=== PATIENT | female | born 1945 | race Caucasian/White ===

== ENCOUNTER 2016-09-12 15:28 | Emergency (ER) | payer OTHER ==
[~2016-09-12] VITALS: Ht 157.5 cm; Wt 74.8 kg
[2016-09-12 15:28] VITALS: BP 153/83
[~2016-09-12 15:28] MED LIST: ASPIR 8181 MG; CELEXA10 MG PO; FLAX OIL1000 MG PO; METFORMIN HCL500 MG PO; MULTIVITAMINS PO; NORCO 5-325 TA1 EACH PO; ZOCOR 20 MG TAB20 M1 PO
[2016-09-12] MEDS ORDERED: NORCO 5-325 TA1 EACH PO (16:31)
== END 2016-09-12 16:50 | disposition home or self-care (01) ==
LOC: ER 15:28
DX: S20.212A Contusion of left front wall of thorax, initial encounter (principal); E11.9 Type 2 diabetes mellitus without complications; Z90.89 Acquired absence of other organs; Z88.5 Allergy status to narcotic agent; W18.30XA Fall on same level, unspecified, initial encounter; Y93.89 Activity, other specified; Y92.000 Kitchen of unspecified non-institutional (private) residence as the place of occurrence of the external cause; Y99.9 Unspecified external cause status

== ENCOUNTER 2017-05-15 16:45 | Inpatient (IN) | payer OTHER ==
[~2017-05-15] VITALS: Ht 157.5 cm; Wt 75.7 kg
--- NOTE | ~2017-05-15 | HC ---
[facility] [place] [address] CONSULTATION Name: JUDIT SCHILLING Room #: 418-P ADM IN M.R.#: [id number] Admission: 05/15/17 Attend Phys: Ofe Villanueva Discharge: Date of : 43 Report #: [id number] THIS REPORT FOR: //name// CC: Ofe Milner MD DATE OF SERVICE: 05/16/2017 REASON FOR CONSULTATION: Elevated creatinine, proteinuria, and hypercalcemia. HISTORY OF PRESENT ILLNESS: This is a 72-year-old female who for the most part has been generally healthy. She says she has been feeling somewhat weak and not her normal self over the past couple of months. She became more acutely ill starting 4 days ago with extreme nausea, inability to take much in as far as food and fluids, although she has gotten some liquids in, one episode of emesis. With that feeling poorly, she saw her primary physician, Quita Ravi MD and some labs were drawn. When the labs came back dramatically abnormal, she was told to come to the Emergency Room and be admitted to the hospital. Primary findings from that standpoint include an elevated calcium level which on admission here was 13.1, her phosphorus was 5.2, her total protein was 8.5 and her albumin was 4.1 at that time. Albumin today is 3.4. Her BUN is 40, creatinine 3.2. Otherwise, had normal electrolytes. Urinalysis showed specific gravity greater than 1.030, 2+ protein, 2+ blood, although microscopic exam showed only 3-10 red cells. The patient has no history of prior renal-related problems. She carries diagnosis of some type 2 diabetes mellitus diagnosed about 4 years ago. She is treated chronically with metformin and she is very certain that Dr. Ravi has never made mention of abnormal kidney function, proteinuria, or the related renal issues over that time. No history of nephrolithiasis. She has had rare urinary tract infections. She has occasional lower extremity edema. From a calcium standpoint, she takes vitamin D3. Previously, she was on 5000 units daily, but over the past 6-12 months she has only been on 2000 units daily. She takes 1 calcium supplement a day and she is uncertain of the mg amount, probably either 500 or 600 mg. She has not been taking Tums or any other calcium source, not drinking extra dairy or milk products. This is even with her nausea and vomiting. The only other renal pertinent history is that she takes some ibuprofen, usually about 400 mg for some arthralgias. She typically takes it once a day in the morning if her joints are sore. She has not been taking any higher doses than that and no other nonsteroidals. PAST MEDICAL HISTORY: Type 2 diabetes that started about 4 years ago and well controlled on the metformin, mild hypertension on some lisinopril, but she had not taken it over the past 4-5 days since she got sick, her dose was 10 mg daily and she states her blood pressure was well controlled in the 130s/60s range. [facility] [address] [place] [address] CONSULTATION Name: JUDIT SCHILLING Room #: 418-P [facility] IN M.R.#: [id number] Admission: 05/15/17 Attend Phys: Ofe Villanueva Discharge: Date of : 43 Report #: [id number] MEDICATIONS: She takes vitamin D as well as the calcium supplementation. She also takes some vitamin E, a B complex vitamin. Aspirin 81 mg daily, Fosamax 70 mg weekly, citalopram 10 mg daily, simvastatin 20 mg daily, omeprazole 20 mg daily. ALLERGIES: CODEINE, which caused GI abscess. FAMILY HISTORY: Mother at age 88. Father at age 88. Both were of old age, no chronic medical problems with either of them. She had a brother who had multiple sclerosis and other brother who had bladder cancer and has cystectomy. No other known renal disease in the family. SOCIAL HISTORY: The patient is , lives in [place], [place]. She is retired. Nonsmoker. REVIEW OF SYSTEMS: GENERAL: Tries to remain active. She is not very limited by her arthralgias and does well with the ibuprofen as far as control of that. Had the nausea and vomiting this week but that is an unusual thing for her, typically no nausea or vomiting, no diarrhea or change in bowel habits. She denies dyspnea, cough, chest pain or palpitations. Usually no difficulty voiding urine. She has nocturia once nightly. Typically she has not had any gross hematuria. She says over the past days, she has noticed some swelling in her lower extremities including her shins and her ankles, no upper extremity or facial edema. She is unaware of fevers, chills or sweats. No recent visual or hearing change. No rashes have been noted. She has chronic arthralgias. PHYSICAL EXAMINATION: GENERAL: Very pleasant 72-year-old female, awake, alert and oriented, in no distress at this time. VITAL SIGNS: Blood pressure 136/63, heart rate 84, temperature 98.2 degrees Fahrenheit. No fever since admission, oxygen saturation 97%. HEENT: Shows pupils are equal and reactive. Sclerae are nonicteric. Oral mucosa is moist. Tongue has some mild brownish discoloration. NECK: Shows no adenopathy, thyromegaly, JVD or bruit. CHEST: Clear bilaterally in all lung guzmán. BACK: Shows no paraspinous or CVA tenderness. HEART: Has a regular rate and rhythm. ABDOMEN: Mildly obese, has bowel sounds present, currently is soft with mild diffuse tenderness, no point tenderness, guarding or rebound, no organomegaly, masses are palpable. EXTREMITIES: She has 1+ bilateral pretibial and ankle edema. She has 2+ peripheral pulses. No upper extremity edema. DIAGNOSTIC DATA: I reviewed her renal ultrasound, which shows normal sized [address] [place] [address] CONSULTATION Name: JUDIT SCHILLING Room #: 418-P [facility] IN M.R.#: [id number] Admission: 05/15/17 Attend Phys: Ofe Villanueva Discharge: Date of : 43 Report #: [id number] kidneys bilaterally. There is no hydronephrosis. Cortical echogenicity is good, although it does appear that she has some dense medullary changes, but no patricia stones or calcium deposits. Right kidney is 12.5 cm, left kidney 11 cm bilateral. Her chest x-ray was clear and I have reviewed that. LABORATORY DATA: Labs from admission, sodium 139, potassium 3.8, chloride 100, bicarbonate 25, BUN 40, creatinine 3.2, glucose 124, calcium 13.1, down to 11.5 today. Phosphorus 5.0-5.3, alkaline phosphatase is 78, AST 32, ALT 37, total protein 8.5, albumin 4.1 on admission down to 3.4 today. PTH has been drawn and is pending. Hemoglobin 12.0, hematocrit 34.6, white count 5.9, platelets 180,000, 67 neutrophils, 20 lymphs, 11 monos, 1 eosinophil. Urinalysis is as described above. ASSESSMENT: 1. Acute kidney injury with hypercalcemia. Her hypercalcemia was impressive to its extent. I think the hypercalcemia can likely explain the significant elevated creatinine level. She has been on IV fluids with normal saline, calcium level starting to come down. We will ginette it with some furosemide to increase the calciuria. She also got a dose of pamidronate, which will help. I expect the calcium level continued to improve. Most likely etiologies are either parathyroid related or more likely paraprotein related. She has multiple other potential contributing factors including use of some nonsteroidals, but that dose is only 400 mg of ibuprofen daily, she has also gotten some lisinopril, but has not taken it for days, so it is probably not an active substance at this time. She has no hydronephrosis. Renal medulla are mildly dense but the cortices look well preserved. She has not been frankly hypotensive, so this certainly all points to being a calcium and/or paraprotein related disorder. 2. Proteinuria also a new finding. Another provider had ordered a 24-hour urine for protein. We will change that just to spot urine protein creatinine ratio which will provide more reliability. High concern of a paraprotein disorder. She already had light chain ratios ordered and serum protein electrophoresis. Again highly concerning for potential multiple myeloma. 3. Type 2 diabetes mellitus for 4 years but previously well controlled on metformin alone. PLAN: 1. Continue IV normal saline. 2. Add IV furosemide one time to increase calcium excretion in the urine. 3. Monitor intake and output. 4. Repeat labs in the morning. 5. Awaiting return of her kappa lambda light chain ratio, serum protein electrophoresis, and parathyroid hormone level. 6. I spent an extensive amount of time talking with the patient about her findings and our concerns. We will certainly keep her informed once we have [facility] [address] [place] [address] CONSULTATION Name: JUDIT SCHILLING Room #: 418-P ADM IN M.R.#: [id number] Admission: 05/15/17 Attend Phys: Ofe Villanueva Discharge: Date of : 43 Report #: [id number] additional data back and also discuss what the additional treatment and/or workup will be pending those results. She seems to express understanding. <ELECTRONICALLY SIGNED> By: You Al MD 05/18/17 0756 1340 1937 You Al MD /nt
--- NOTE | ~2017-05-15 | S ---
[facility] [address] [place] [address] SURGICAL PATH RPT PROCEDURE Name: JUDIT SCHILLING Room #: 418-P DIS IN M.R.#: [id number] Admission: 05/15/17 Date of : 43 Discharge: 05/19/17 Report #: [id number] Path Case #: [id number] PATHOLOGY REPORT COLLECTION DATE: 05/19/2017 RECEIVED DATE: 05/19/2017 SUBMITTING PHYS: Dr. Oef Villanueva OTHER PHYS: Dr. Dontae Hernandez SPECIMEN(S) RECEIVED: A.Bone marrow, biopsy B.Bone marrow, clot and/or particle prep C.Bone marrow, aspirate smears D.Peripheral smear * * * * * * * * * * * * FINAL DIAGNOSIS: Bone marrow aspirate, biopsy, cell clot and peripheral blood: - Peripheral blood with moderate to normocytic anemia and mild thrombocytopenia. - Hypercellular bone marrow with trilineage hematopoiesis and extensive involvement by plasma cell dyscrasia (approximately 80% kappa restricted plasma cells by immunohistochemical staining). See comment. COMMENT: Overall the bone marrow is hypercellular for the patient's age with trilineage hematopoiesis and extensive involvement by plasma cell dyscrasia. There are approximately 80% kappa restricted plasma cells by immunohistochemical staining. Correlation with clinical history, additional laboratory data and radiographic findings is required to determine the extent of the disease process. The dyspoiesis is mild and does not meet the morphologic criteria for myelodysplasia. Correlation with cytogenics and FISH analysis is also recommended. (CLW:brandi; 05/21/2017) PATHOLOGIST: Milena Stuart M.D. REPORT ELECTRONICALLY SIGNED BY: Milena Stuart M.D. DATE/TIME: 05/21/2017 19:46 * * * * * * * * * * * * MICROSCOPIC DESCRIPTION: CBC Data (05/19/17): WBC 7,200 /uL, RBC 2.88, hemoglobin 9.7 g/dL, hematocrit 27.7%, MCV 96.4 fL, MCH 33.8 pg, MCHC 35.1 g/dL, RDW 14.1%, and platelet count 131,000 /uL. Manual white blood cell differential: segs 79%, bands 2%, lymphs 14%, monos 5%. Peripheral Blood Smear: [address] [address] SURGICAL PATH RPT PROCEDURE Name: JUDIT SCHILLING Room #: 418-P [facility] IN .R.#: [id number] Admission: 05/15/17 Date of : 43 Discharge: 05/19/17 Report #: [id number] Path Case #: [id number] Cytomorphological examination of the Byrd's stained peripheral blood smear confirms the provided data. Red blood cells show moderate normocytic anemia with no significant anisopoikilocytosis. White blood cells are predominantly segmented neutrophils and are without significant dyspoiesis or significant left shift. Lymphocytes are predominantly small, round, and mature appearing with condensed chromatin and scant cytoplasm with admixed large granular lymphocytes. On scanning, no plasma cells are seen. Platelets are adequate (mildly decreased) in number and mainly normal in morphology with rare larger platelets noted. Aspirate Smears: Cytomorphological examination of the Byrd's stained aspirate smears show hypercellular spicules present. The overall cellularity is approximately 90%. Numerous plasma cells are seen. Apart from the plasma cells, the myeloid to erythroid ratio is 3:1. Myeloid maturation is without significant dyspoiesis and erythroid maturation is mildly dyserythropoietic with irregular nuclear contours and nuclear cytoplasmic asynchrony. In a 500 cell differential, there are 1% blasts (no Markell rods are seen), 29% more differentiated myeloids, 11% erythroid precursors, 5% lymphocytes and 54% plasma cells. Megakaryocytes are proportional in number and both normal and abnormal in morphology with variable sizes in nuclear abnormalities. No lymphoid aggregates or markedly atypical lymphoid cells are seen. Plasma cells are atypical with variable cell sizes and variably condensed nuclear chromatin. Iron stain of the aspirate smear showed 0/4+ iron positivity. There is very little material present on the slide. No ringed sideroblasts are identified. Core Biopsy and Cell Clot: The decalcified bone marrow core biopsy is adequate. The bone marrow is hypercellular with an overall cellularity of approximately 80-90%. Diffuse sheets of atypical plasma cells are identified. Apart from the plasma cells, the myeloid to erythroid ratio is 2-3:1. Myeloid and erythroid maturation are mildly dyspoietic. Megakaryocytes are normal in number and both normal and abnormal in morphology. No lymphoid aggregates or markedly atypical lymphoid cells are seen. Bony trabeculae and blood vessels are unremarkable. The diffuse sheets of plasma cells have atypical morphology with focal spindled cell morphology and variably condensed nuclear chromatin. Iron stain of the cell clot (Block B1 and B5) shows 1/4+ iron positivity with spicules present. To further quantify and characterize the plasma cell population and to identify cells in a tissue architectural context, properly controlled immunohistochemical stains are performed. Block A1 CD138 stains approximately 80% plasma cells including the large sheets [place] and lambda in situ hybridization plasma cells are kappa restricted [address] [address] SURGICAL PATH RPT PROCEDURE Name: JUDIT SCHILLING Room #: 418-P DIS IN M.R.#: [id number] Admission: 05/15/17 Date of : 43 Discharge: 05/19/17 Report #: [id number] Path Case #: [id number] Block B5 CD138 stains approximately 60-70% plasma cells including large sheets [place] and lambda in situ hybridization plasma cells are kappa restricted Flow Cytometry: Flow cytometric immunophenotypic analysis was performed at [facility]. The diagnosis is "small monoclonal plasma cell population detected". There are 8.7% lymphocytes. Of the lymphocytes, there are 72% T-cells with a CD4/CD8 ratio of 9.2 and no aberrant T-cell antigen expression and 4% polyclonal B-cells (kappa lambda ratio of 1.2). There are 0.4% CD34 positive cells (blasts). There are 0.5% plasma cells that show cytoplasmic kappa light chain restriction and show CD19 neg, CD38 fernando, CD45 neg, CD56 neg, CD138 mod and cKappa mod. Flow cytometry shows monoclonal plasma cells (0.5% of total cells). Please see separate flow cytometry report from [facility] ([id number]). Cytogenetics Analysis: Cytogenetic chromosomal analysis is pending at [facility] ([id number]). FISH analysis for an MM-MGUS FISH panel was ordered at [facility]. (CLW:brandi; 05/21/2017) GROSS PATHOLOGY: A. Received in 10% formalin labeled "Judit Schilling, BM biopsy," are 3 needle cores of pleitez bone, ranging from 1.1 to 1.5 cm in length and 0.2 cm in diameter. The specimen is submitted entirely in cassette A1, following decalcification. B. Received in 10% formalin labeled "Judit Schilling BM clot," is blood coagulum, measuring 7.1 x 3.8 x 1.5 cm in aggregate dimensions. The specimen is submitted entirely in cassette B1 through B5. (TSD; 05/19/2017) CLINICAL HISTORY: Myeloma. 72-year-old woman with myeloma. INITIAL CPT CODE(S): A; 30411, 91921, 94586, 93451, 66192 B; 61806, 73682, 22312, 33074, 18259, 34498 C; 29018, 24644 D; 04011 Professional services performed by [employer] at [facility], [address] [place] [id number]. Technical services performed by [employer] at [address] [place] [address]. [address] [place] [address], [address]. [address] [address] SURGICAL PATH RPT PROCEDURE Name: JUDIT SCHILLING Room #: 418-P DIS IN M.R.#: [id number] Admission: 05/15/17 Date of : 43 Discharge: 05/19/17 Report #: [id number] Path Case #: [id number] [facility] [address] [address] PHONE: [phone] DIRECTOR: Zion W. Francis, M.D. * * * END OF REPORT * * *
--- NOTE | ~2017-05-15 | HC ---
[facility] [place] [address] CONSULTATION Name: JUDIT SCHILLING Room #: 418-P [facility] IN M.R.#: [id number] Admission: 05/15/17 Attend Phys: Ofe Villanueva Discharge: 05/19/17 Date of : 43 Report #: [id number] THIS REPORT FOR: //name// CC: Ofe Al MD HISTORY OF PRESENT ILLNESS: This patient is seen in consultation regarding findings of a kappa light chain paraprotein/suspected multiple myeloma. This 72-year-old white female who was seen with her son and was admitted through the Emergency Room with findings of hypercalcemia and complaints of nausea and poor p.o. intake with one episode of emesis. She has been treated subsequently with IV fluids and already in subsequent improvement in her calcium and renal function. Subsequent testing has shown the aforementioned abnormal free light chain. PAST MEDICAL HISTORY: Positive for type 2 diabetes treated with metformin. She has medically managed hypertension with lisinopril. MEDICATIONS: As listed on the MFR. ALLERGIES: CODEINE, WHICH HAD CAUSED A PREVIOUS GI ABSCESS. SOCIAL HISTORY: She is , is a nonsmoker, is retired and lives in [place], [place]. She has a supportive son who was present. FAMILY HISTORY: Negative for any known myeloma. REVIEW OF SYSTEMS: As in the history of present illness. She denies any new bony pains and says she has chronic hip arthritis. She denies any new palpable masses. She denies any sweats, chills or fevers. PHYSICAL EXAMINATION: GENERAL: Shows an alert white female. HEENT: Normocephalic. NECK: Supple. MOUTH: Clear. CHEST: Clear. ABDOMEN: Soft. EXTREMITIES: Showed trace edema. LYMPHATICS: No palpable supraclavicular or axillary lymphadenopathy. NEUROLOGIC: No focal localizing signs. PSYCHIATRIC: Not agitated or confused. LABORATORY DATA: Showed elevated serum creatinine of 3.2 with a calcium of 13.[address] [address] CONSULTATION Name: JUDIT SCHILLING Room #: 418-P [facility] IN M.R.#: [id number] Admission: 05/15/17 Attend Phys: Ofe David Lyn Discharge: 05/19/17 Date of : 43 Report #: [id number] on admission. She has had a bone survey performed showing model changes within her skull compatible with myeloma. 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 PLAN: The patient has undergone a bone marrow aspiration biopsy today, which should confirm the suspected diagnosis of multiple myeloma. She plans to be discharged following this procedure and I will arrange to see her in followup outpatient in the office. I discussed treatment briefly today with she and her son and appreciate the opportunity being asked to see her in consultation and being allowed to participate in her care. <ELECTRONICALLY SIGNED> By: Shalonda Real MD 05/21/17 1537 1604 2312 Shalonda Real MD /nt
--- NOTE | ~2017-05-15 | EKG ---
[place] [address] [address] [facility] [address] [address] ELECTROCARDIOGRAM REPORT Name: JUDIT SCHILLING Room #: 418-P ADM IN M.R.#: [id number] Admission: 05/15/17 Attend Phys: Ofe Villanueva Discharge: Date of : 43 Report #: [id number] THIS REPORT FOR: //name// [facility] ED Test Date: 2017-05-15 Test Time: 17:32:29 Pat Name: JUDIT SCHILLING Department: Room: [facility] Gender: F Appointment Setter: NOE : 1945 Requested By: Alyssa Cummings Order Number: [id number] MD: Aaron Banuelos Measurements Intervals Olla Rate: 106 P: 87 ME: 151 QRS: 8 QRSD: 80 T: 20 QT: 338 QTc: 449 Interpretive Statements Sinus tachycardia No significant abnormality No previous ECG available for comparison Electronically Signed On 05-16-2017 15:53:05 DEVELOPMENTAL MATHEMAT[employer] INSTRUCTOR by Aaron Banuelos [email or web address] <ELECTRONICALLY SIGNED> By: Aaron Banuelos MD, [facility] 05/16/17 1553 1732 1732 Aaron Banuelos MD, FACC /EPI
[2017-05-15 16:47] VITALS: BP 165/83
[2017-05-15 17:31] LABS: ABSOLUTE NEUTROPHILS 3.9 thou/uL (1.4-8.2); BASOPHILS 0.4 % (0.0-2.0); EOSINOPHILS 1.2 % (0.0-3.0); HEMATOCRIT 34.6 % (37.0-47.0); LYMPHOCYTES 20.4 % (24.0-44.0); MCH 33.3 pg (26.0-34.0); MCHC 34.7 g/dL (28.0-37.0); MONOCYTES 11.1 % (1.0-8.0); PLATELET COUNT 180 thou/uL (150-400); POLYS 66.9 % (36.0-66.0); RBC 3.61 mil/uL (4.20-5.00); RDW 13.9 % (10.5-14.5); WBC 5.9 thou/uL (4.0-11.0)
[2017-05-15 17:32] LABS: URINE BILIRUBIN NEGATIVE (Negative); URINE BLOOD 2+ (Negative); URINE COLOR YELLOW; URINE GLUCOSE-RANDOM* NEGATIVE (Negative); URINE KETONES NEGATIVE (Negative); URINE NITRITE NEGATIVE (Negative); URINE PROTEIN (DIPSTICK) 2+ (Negative); URINE SPECIFIC GRAVITY >= 1.030 (1.005-1.035); URINE UROBILINOGEN 0.2 E.U./dl (0.2-1.0)
[2017-05-15 17:33] LABS: MANUAL DIFF NO
[2017-05-15 17:38] LABS: ANION GAP 14 mmol/L (7-16); BUN 40 mg/dL (7-18); CHLORIDE 100 mmol/L (98-107); CO2 25 mmol/L (21-32); CREATININE 3.2 mg/dL (0.6-1.0); GLUCOSE 124 mg/dL (74-106); POTASSIUM 3.8 mmol/L (3.5-5.1); SODIUM 139 mmol/L (136-145)
[2017-05-15 17:40] LABS: CALCIUM 13.1 mg/dL (8.5-10.1)
[2017-05-15 17:45] LABS: BACTERIA 1-9 Few /HPF (None Seen); CASTS None Seen /LPF (None Seen); CRYSTALS None Seen /LPF (None Seen); SQUAMOUS 0-3 Few /LPF (0-3); URINE RBC 3-10 Few /HPF (0-2); URINE WBC 0-5 Rare /HPF (0-5)
[2017-05-15 17:47] LABS: ALKALINE PHOSPHATASE 78 U/L (46-116); SGOT 32 U/L (15-37); SGPT 37 U/L (30-65); TOTAL BILIRUBIN 0.5 mg/dL (<0.1-1.0)
[2017-05-15 17:48] LABS: ALBUMIN 4.1 g/dL (3.4-5.0); TOTAL PROTEIN 8.5 g/dL (6.4-8.2); TROPONIN-I < 0.04 ng/mL (<0.06)
[2017-05-15 18:33] VITALS: BP 165/83
[2017-05-15 19:46] VITALS: BP 165/83
[2017-05-15 20:31] VITALS: BP 169/66
[2017-05-15 20:45] LABS: CALCIUM 12.2 mg/dL (8.5-10.1)
[2017-05-16] VITALS: BP 142/66
[2017-05-16] MEDS ORDERED: GLUCOPHAGE XR500 MG PO ×3 (01:23→01:25)
[2017-05-16] MEDS ORDERED: LISINOPRIL10 MG PO ×2 (01:26)
[2017-05-16] MEDS ORDERED: FOSAMAX 70 MG T70 MG PO (01:27)
[2017-05-16] MEDS ORDERED: OMEPRAZOLE 20 M20 M1 PO (01:27)
[2017-05-16 04:00] VITALS: BP 151/71
[2017-05-16 05:19] LABS: ALBUMIN 3.4 g/dL (3.4-5.0); CALCIUM 11.5 mg/dL (8.5-10.1); PHOSPHORUS 5.2 mg/dL (2.5-4.9)
[2017-05-16 08:00] VITALS: BP 136/63
[2017-05-16 16:00] VITALS: BP 117/98
[2017-05-16 17:52] LABS: PROT/CREAT RATIO 5.7; URINE CREATININE-RANDOM* 31.1 mg/dL; URINE PROTEIN-RANDOM* 178.5 mg/dL (<11.9)
[2017-05-16 19:17] VITALS: BP 126/53
[2017-05-17 03:20] VITALS: BP 134/58
[2017-05-17 05:56] LABS: ALBUMIN 3.2 g/dL (3.4-5.0); CALCIUM 10.6 mg/dL (8.5-10.1); CREATININE 2.8 mg/dL (0.6-1.0); POTASSIUM 4.1 mmol/L (3.5-5.1); TOTAL BILIRUBIN 0.2 mg/dL (<0.1-1.0); TOTAL PROTEIN 6.7 g/dL (6.4-8.2)
[2017-05-17 08:00] VITALS: BP 132/59
[2017-05-17 16:00] VITALS: BP 142/61
[2017-05-17 20:00] VITALS: BP 122/48
[2017-05-18 04:30] VITALS: BP 141/63
[2017-05-18 06:34] LABS: ALBUMIN 3.2 g/dL (3.4-5.0); CALCIUM 9.3 mg/dL (8.5-10.1); CREATININE 2.6 mg/dL (0.6-1.0); PHOSPHORUS 3.9 mg/dL (2.5-4.9); POTASSIUM 3.5 mmol/L (3.5-5.1)
[2017-05-18 08:09] VITALS: BP 151/85
[2017-05-18] MEDS ORDERED: ATENOLOL 50MG T50 M1 PO (10:10)
[2017-05-18 14:08] LABS: KAPPA FREE LIGHT CHAINS 9440.2 mg/L (3.3-19.4); KAPPA/LAMBDA RATIO 1716.4 (0.26-1.65); LAMBDA FREE LIGHT CHAINS 5.5 mg/L (5.7-26.3)
[2017-05-18 21:26] VITALS: BP 146/66
[2017-05-19 00:19] VITALS: BP 160/65
[2017-05-19 04:18] VITALS: BP 142/53
[2017-05-19 07:00] LABS: ALBUMIN 3.4 g/dL (3.4-5.0); CALCIUM 9.5 mg/dL (8.5-10.1); CREATININE 2.2 mg/dL (0.6-1.0); PHOSPHORUS 3.2 mg/dL (2.5-4.9)
[2017-05-19 07:23] LABS: POTASSIUM 3.3 mmol/L (3.5-5.1)
[2017-05-19 08:00] VITALS: BP 127/57
[2017-05-19 08:11] LABS: ALBUMIN 3.7 g/dL (2.9-4.4); ALPHA 1 0.2 g/dL (0.0-0.4); ALPHA 2 1.1 g/dL (0.4-1.0); GAMMA 1.5 g/dL (0.4-1.8); M-SPIKE Note: g/dL (Not Observed)
[2017-05-19 11:12] VITALS: BP 127/57
[2017-05-19 11:55] LABS: HEMATOCRIT 27.7 % (37.0-47.0); HEMOGLOBIN 9.7 gm/dL (12.0-15.0); MCH 33.8 pg (26.0-34.0); MCHC 35.1 g/dL (28.0-37.0); MCV 96.4 fL (80.0-100.0); PLATELET COUNT 131 thou/uL (150-400); RBC 2.88 mil/uL (4.20-5.00); RDW 14.1 % (10.5-14.5); WBC 7.2 thou/uL (4.0-11.0)
[2017-05-19 11:56] LABS: MANUAL DIFF YES
[2017-05-19 12:07] LABS: APTT 22.8 Seconds (24.5-32.8); INR 1.1; PROTIME 11.5 Seconds (9.3-11.4)
[2017-05-19 12:35] LABS: ABSOLUTE NEUTROPHILS 5.8 thou/uL (1.4-8.2); PLATELET ESTIMATE NORMAL; TOTAL CELL COUNT 100
[2017-05-19 12:58] LABS: ABSOLUTE RETIC COUNT 0.0308 10^6/uL; OBSERVED RETIC COUNT 1.08 % (0.6-2.6)
[2017-05-19 14:13] VITALS: BP 127/57
[2017-05-19 16:00] VITALS: BP 136/65
[2017-05-20 01:11] LABS: IgM 60 mg/dL (26-217)
[2017-05-20 16:08] LABS: KAPPA FREE LIGHT CHAINS 8601.5 mg/L (3.3-19.4); KAPPA/LAMBDA RATIO 2966.03 (0.26-1.65); LAMBDA FREE LIGHT CHAINS 2.9 mg/L (5.7-26.3)
[2017-05-21 10:09] LABS: IgA 1136 mg/dL (64-422)
[2017-05-21 11:10] LABS: ERYTHROPOIETIN 50.5 mIU/mL (2.6-18.5)
== END 2017-05-19 18:07 | disposition home or self-care (01) | DRG 640 ==
LOC: ER 16:45 → EROBS 17:53 → 4E 17:53 → ENTRNSPT 05-19 17:39 → 4E 05-19 18:07
PROVIDERS: Hospitalist; Internal Medicine Hematology & Oncology; Internal Medicine Nephrology; Nurse Practitioner Family
PROC: 07DR3ZX Extraction of Iliac Bone Marrow, Percutaneous Approach, Diagnostic (ICD-10-PCS; principal; 2017-05-19)
DX: E83.52 Hypercalcemia (principal); N17.0 Acute kidney failure with tubular necrosis; C90.00 Multiple myeloma not having achieved remission; D80.8 Other immunodeficiencies with predominantly antibody defects; E11.9 Type 2 diabetes mellitus without complications; R80.9 Proteinuria, unspecified; Z90.49 Acquired absence of other specified parts of digestive tract; Z79.82 Long term (current) use of aspirin; Z79.84 Long term (current) use of oral hypoglycemic drugs; Z79.899 Other long term (current) drug therapy; Z88.5 Allergy status to narcotic agent
CPT/HCPCS: 10183

== ENCOUNTER 2020-02-04 11:27 | Inpatient (IN) | payer OTHER ==
[~2020-02-04] VITALS: Ht 152.4 cm; Wt 74.8 kg
[~2020-02-04 11:27] MED LIST changes: +ATENOLOL 50MG T50 M1 PO; +FOSAMAX 70 MG T70 MG PO; +GLUCOPHAGE XR500 MG PO; +LISINOPRIL10 MG PO; +OMEPRAZOLE 20 M20 M1 PO
[2020-02-04] MEDS ORDERED: VENTOLIN HFA 1818 GM INH (11:44)
[2020-02-04] MEDS ORDERED: GABAPENTIN 100100 MG PO (11:46)
[2020-02-04] MEDS ORDERED: VITAMIN D21250 MC1 PO (11:46)
[2020-02-04] MEDS ORDERED: CARVEDILOL3.125 MG PO (11:47)
[2020-02-04] MEDS ORDERED: REVLIMID5 MG PO (11:47)
[2020-02-04 12:30] LABS: HEMOGLOBIN 10.5 gm/dL (12.0-15.0); MCH 30.7 pg (26.0-34.0); MCHC 33.9 g/dL (28.0-37.0); MCV 90.7 fL (80.0-100.0); RBC 3.41 mil/uL (4.20-5.00); RDW 17.3 % (10.5-14.5); WBC 4.7 thou/uL (4.0-11.0)
[2020-02-04 12:37] LABS: CALCIUM 8.5 mg/dL (8.5-10.1); CREATININE 0.8 mg/dL (0.6-1.0); POTASSIUM 4.1 mmol/L (3.5-5.1)
[2020-02-04 12:46] LABS: ABSOLUTE NEUTROPHILS 2.8 thou/uL (1.4-8.2)
[2020-02-04 13:51] LABS: PLATELET COUNT 147 thou/uL (150-400)
--- NOTE | 2020-02-04 13:58 | NUR ---
ADDITIONAL BLOOD DRAWN PER LAB REQUEST AND SENT 30 MIN AGO. STILL NOT PROCESSED. CALLED LAB WHO STATES THEY HAVE AND WILL PROCESS
[2020-02-04 14:16] LABS: APTT 22.3 Seconds (24.5-32.8); PROTIME 10.3 Seconds (9.3-11.4)
[2020-02-04 14:42] LABS: APTT 21.8 Seconds (24.5-32.8); PROTIME 10.4 Seconds (9.3-11.4)
[2020-02-04 15:56] VITALS: BP 182/64
--- NOTE | 2020-02-04 16:13 | NUR ---
ATTEMPTED TO CALL REPORT, WAITED ON HOLE FOR 8 MINUTES, COULD NO LONGER HOLD DUE TO PT. CARE PRIORITIZATION, WILL ATTEMPT TO CALL AGAIN IN 10 MINS
--- NOTE | 2020-02-04 16:40 | NUR ---
US TECH STILL AT BEDSIDE, REPORT CALLED, WILL BRING PT TO ROOM 209 WHEN TECH IS FINISHED
[2020-02-04 16:41] VITALS: BP 174/109
--- NOTE | 2020-02-04 16:42 | NUR ---
INFORMED NURSE, TASIA URBAN ABOUT PT HTN, NO REGULAR MEDS ON JUL PRIOR TO TRANSFER TO CCU, SHE VERBALIZED UNDERSTANDING
[2020-02-04 18:00] VITALS: BP 185/80
--- NOTE | 2020-02-04 19:50 | NUR ---
ASSUMMED PT CARE AT APPROXIMATELY 1800. PT A&O X4. ASSESSMENT CHARTED. FALL PRECAUTIONS IN PLACE. PT DENIES HAVING ACUTE PAIN. PT DENIES HAVING CHEST PAIN. PT DENIES HAVING SOB. HEPARIN DRIP STARTED. PT BP ELEVATED. PRN MEDICATION GIVEN. WILL CONTINUE TO MONITOR BP. VITAL SIGNS STABLE. ADMISSION COMPLETE. PT COMFORTABLE. PT DENIES HAVING FURTHER CONCERNS.
[2020-02-04 20:10] VITALS: BP 172/84
[2020-02-05 04:45] VITALS: BP 166/72
[2020-02-05 07:45] VITALS: BP 142/53
[2020-02-05 07:49] VITALS: BP 181/82
[2020-02-05 11:17] VITALS: BP 142/53
[2020-02-05 11:45] VITALS: BP 142/53
[2020-02-05] MEDS ORDERED: XARELTO20 MG PO (12:36)
[2020-02-05] MEDS ORDERED: COZAAR 25 MG TA25 M1 PO ×2 (12:36→12:54)
[2020-02-05] MEDS ORDERED: XARELTO15 MG PO (12:36)
[2020-02-05] MEDS ORDERED: COREG6.25 MG PO (12:36)
[2020-02-05 13:09] VITALS: BP 142/53
--- NOTE | 2020-02-05 13:42 | NUR ---
PT CARE ASSUMED AT 0700. ASSESSMENTS CHARTED. MEDICTION CHARTED. HEPARIN PROTOCOL - APTT AT 0400 79.5; 15 UNITS/KG/HR. APTT AT 1150 62.1; NO CHANGE. HEPARIN DRIP D/C'D AFTER XRELTO GIVEN. PT TO BE DISCHARGED HOME. TELEMETRY D/C'D. LEJ IV D/C'D. PAPERWORK SIGNED.
== END 2020-02-05 14:06 | disposition home or self-care (01) | DRG 299 ==
LOC: ER 11:27 → EROBS 15:41 → 2N 15:41
PROVIDERS: Physician Assistant; ADMIT Hospitalist; ATTEND Hospitalist
DX: I82.622 Acute embolism and thrombosis of deep veins of left upper extremity (principal); I26.99 Other pulmonary embolism without acute cor pulmonale; C90.00 Multiple myeloma not having achieved remission; R91.1 Solitary pulmonary nodule; I10 Essential (primary) hypertension; E11.42 Type 2 diabetes mellitus with diabetic polyneuropathy; K21.9 Gastro-esophageal reflux disease without esophagitis; D69.6 Thrombocytopenia, unspecified; D64.9 Anemia, unspecified; Z87.891 Personal history of nicotine dependence; Z90.49 Acquired absence of other specified parts of digestive tract; Z79.899 Other long term (current) drug therapy; Z88.5 Allergy status to narcotic agent; Z88.8 Allergy status to other drugs, medicaments and biological substances
CPT/HCPCS: 10081